=== PATIENT | male | born 1945 | race Caucasian/White ===

== ENCOUNTER 2016-12-23 17:36 | Inpatient (IN) | payer MEDICARE ==
[~2016-12-23] VITALS: Ht 162.6 cm; Wt 57.0 kg
[~2016-12-23 17:36] MED LIST: CIPR250T2 PO; COUM3TAB PO; DICY10 PO; FLUC200T63 PO; KLOR20TA6 PO; LORTA5 PO; MORP30SU PO; NIFE1TAB85 PO; PRAV40TA2 PO; PROB500 PO; PROT40TA PO; TAMS5CAP OR; VANC500 OR; [UNRECOGNIZED DRUG - CODE] OR; vancomycin IV
[2016-12-23 17:43] VITALS: BP 113/68; PULSE 101; RESP 16; TEMP 99.3; O2SAT 95
[2016-12-23] MEDS ORDERED: SODIUM CHLORIDE 0.9% FLUSH 10 ML FLUSH IVF PRN (18:00)
[2016-12-23] MEDS ORDERED: SODIUM CHLORID 0.9% 500 ML INJ 500 ML IV ONE (18:00)
--- NOTE | 2016-12-23 18:07 | PD ---
HPI Chief Complaint: Altered Mental Status Time Seen by Provider: 17:47 Travel History International Travel<30 days: No Contact w/Intl Traveler<30days: No Traveled to known affect area: No History of Present Illness HPI 71-year-old male presents to the emergency department via EMS for "altered mental status". The patient states that "my thinks I am acting weird". The patient states that he took off his shirt and pants earlier which his thought was strange. When I asked him why he did this "he states because I had to go to the bathroom". The patient is alert and oriented to person, place, time. He denies any pain at this time. He does have a sentinel pump implanted for chronic foot pain. He states he takes no other medications. Patient denies any syncope, weakness, head injury. He denies any current headache. He does state that he has had some mild headaches recently, but denies any headache right now. He denies any chest pain. He does state he has had some shortness of breath in the mornings, but does not believe he has any shortness of breath at this time. No abdominal pain. No nausea, vomiting, diarrhea. Patient does state that he has had trouble eating due to having his teeth out recently and has been having trouble sleeping which is new for him. PFSH Past Medical History Cancer: Yes (skin) Cardiovascular Problems: Yes High Cholesterol: Yes Chemotherapy: No Endocrine: No GERD: Yes Gout: Yes Hypertension: Yes Immune Disorder: No Implanted Vascular Access Dvce: Yes Musculoskeletal: No Neurologic: No Psychiatric: No Reproductive: No Respiratory: No Radiation Therapy: No Past Surgical History Abdominal Surgery: Yes (pain pump) Body Medical Devices: stimulator pain pump Other Surgery: Yes (PAIN PUMP 07/25/12) Social History Alcohol Use: No Tobacco Use: No Substance Use: No Allergies-Medications (Allergen,Severity, Reaction): Coded Allergies: *MDRO Multi-Drug Resistant Organism (Verified Allergy, Unknown, 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 Patient is alert and oriented to person, place, time. SKIN: Focused skin assessment warm/dry. HEAD: Normocephalic. Atraumatic EYES: No scleral icterus. No injection or drainage. NECK: Supple, trachea midline. No JVD or lymphadenopathy. CARDIOVASCULAR: Regular rate and rhythm without murmurs, gallops, or rubs. RESPIRATORY: Breath sounds equal bilaterally. No accessory muscle use. Lungs sounds are clear to auscultation. GASTROINTESTINAL: Abdomen soft, non-tender, nondistended. MUSCULOSKELETAL: No cyanosis, or edema. BACK: Nontender without obvious deformity. No CVA tenderness. Data Data Last Documented VS Vital Signs Date Time Temp Pulse Resp B/P (MAP) Pulse Ox O2 Delivery O2 Flow Rate FiO2 12/23/16 19:45 70 18 124/64 (84) 96 Room Air 12/23/16 17:43 99.3 Orders Orders Electrocardiogram (12/23/16 17:55) Complete Blood Count With Diff (12/23/16 17:55) Comprehensive Metabolic Panel (12/23/16 17:55) Magnesium (Mg) (12/23/16 17:55) Ckmb (Isoenzyme) Profile (12/23/16 17:55) Troponin I (12/23/16 17:55) Act Partial Throm Time (Ptt) (12/23/16 17:55) Prothrombin Time / Inr (Pt) (12/23/16 17:55) Urinalysis - C+S If Indicated (12/23/16 17:55) Chest, Single Ap (12/23/16 17:55) Ecg Monitoring (12/23/16 17:55) Iv Access Insert/Monitor (12/23/16 17:55) Oximetry (12/23/16 17:55) Sodium Chloride 0.9% Flush (Ns Flush) (12/23/16 18:00) Sodium Chlorid 0.9% 500 Ml Inj (Ns 500 M (12/23/16 18:00) Cath For Specimen (12/23/16 18:00) Ct Brain W/O Iv Contrast(Rout) (12/23/16 ) Urine Culture (12/23/16 18:19) Blood Culture (12/23/16 20:08) Lactic Acid Sepsis Protocol (12/23/16 20:08) Ceftriaxone Inj (Rocephin Inj) (12/23/16 20:15) Vancomycin Inj (Vancomycin Inj) (12/23/16 20:15) Labs Laboratory Tests Test 12/23/16 18:19 12/23/16 20:20 White Blood Count 20.5 TH/MM3 Red Blood Count 4.08 MIL/MM3 Hemoglobin 12.8 GM/DL Hematocrit 38.7 % Mean Corpuscular Volume 94.7 FL Mean Corpuscular Hemoglobin 31.2 PG Mean Corpuscular Hemoglobin Concent 33.0 % Red Cell Distribution Width 14.7 % Platelet Count 221 TH/MM3 Mean Platelet Volume 8.4 FL Neutrophils (%) (Auto) 82.8 % Lymphocytes (%) (Auto) 7.9 % Monocytes (%) (Auto) 9.0 % Eosinophils (%) (Auto) 0.1 % Basophils (%) (Auto) 0.2 % Neutrophils # (Auto) 16.9 TH/MM3 Lymphocytes # (Auto) 1.6 TH/MM3 Monocytes # (Auto) 1.8 TH/MM3 Eosinophils # (Auto) 0.0 TH/MM3 Basophils # (Auto) 0.0 TH/MM3 CBC Comment DIFF FINAL Differential Comment Prothrombin Time 11.4 SEC Prothromb Time International Ratio 1.0 RATIO Activated Partial Thromboplast Time 25.1 SEC Urine Color YELLOW Urine Turbidity HAZY Urine pH 5.5 Urine Specific [place] 1.021 Urine Protein TRACE mg/dL Urine Glucose (UA) NEG mg/dL Urine Ketones NEG mg/dL Urine Occult Blood NEG Urine Nitrite NEG Urine Bilirubin NEG Urine Urobilinogen LESS THAN 2.0 MG/DL Urine Leukocyte Esterase LARGE Urine RBC 3 /hpf Urine WBC 20 /hpf Urine Squamous Epithelial Cells 1 /hpf Urine Amorphous Sediment RARE Urine Bacteria FEW /hpf Urine Hyaline Casts 12 /lpf Urine Mucus FEW /lpf Microscopic Urinalysis Comment CULTURE INDICATED Blood Urea Nitrogen 22 MG/DL Creatinine 1.19 MG/DL Random Glucose 89 MG/DL Total Protein 6.5 GM/DL Albumin 3.4 GM/DL Calcium Level 8.6 MG/DL Magnesium Level 1.8 MG/DL Alkaline Phosphatase 46 U/L Aspartate Amino Transf (AST/SGOT) 12 U/L Alanine Aminotransferase (ALT/SGPT) 13 U/L Total Bilirubin 0.3 MG/DL Sodium Level 137 MEQ/L Potassium Level 3.3 MEQ/L Chloride Level 102 MEQ/L Carbon Dioxide Level 24.7 MEQ/L Anion Gap 10 MEQ/L Estimat Glomerular Filtration Rate 60 ML/MIN Total Creatine Kinase 49 U/L Troponin I LESS THAN 0.02 NG/ML Lactic Acid Level 0.8 mmol/L MDM Medical Decision Making Medical Screen Exam Complete: Yes Emergency Medical Condition: Yes Medical Record Reviewed: Yes Interpretation(s) chest x-ray - CONCLUSION: No acute abnormality is seen. Differential Diagnosis Electrolyte abnormality versus dehydration versus ACS versus medical clearance Narrative Course 71-year-old male presents to the emergency department for evaluation of altered mental status. He is alert and oriented to person, place, time, but states his thinks he is acting weird. He does complain of not sleeping at night and not eating well. EKG, CBC, CMP, magnesium, CK, troponin, PTT, PT/INR, UA are ordered and pending. Chest x-ray is ordered and pending. Patient is given normal saline 500 and a bolus. EKG shows sinus rhythm, left bundle branch block, heart rate 89. CBC shows leukocytosis 20.5, neutrophilia 82.8. CMP shows slight hypokalemia at 3.3. Magnesium is 1.8. CK is 49. Troponin is less than 0.02. Coags are unremarkable. UA shows large leukocyte esterase, 20 WBC, few bacteria. Chest x -ray shows no acute abnormality. Patient is started on Rocephin 1 g IV, vancomycin 1 g IV for urosepsis. His is at bedside. She states that he has been doing strange things today, taking off his pants, not the bathroom, putting weird things under the bed and keeping light sign. The patient and his both agree to admission. S is paged for admission. INTERMEDIATE FRAME TENDER accepted admission. Sepsis Criteria SIRS Criteria (2 or more): Heart rate over 90, WBC > 04918, < 4000 or > 10% bands Sepsis Criteria (SIRS+source): Infect source susp/known Diagnosis Primary Impression: UTI (urinary tract infection) Qualified Codes: N30.00 - Acute cystitis without hematuria Additional Impression: Sepsis Qualified Codes: A41.9 - Sepsis, unspecified organism Admitting Information Admitting Physician Requests: Admit Odalis Talbot Dec 23, 2016 18:07
[2016-12-23] MEDS ORDERED: FENTANYL PAIN PUMP (18:09)
[2016-12-23] MEDS ORDERED: BACK500T PO (18:09)
[2016-12-23] MEDS ORDERED: NEXI20CA PO (18:09)
[2016-12-23 18:30] VITALS: RESP 18; O2SAT 96
[2016-12-23 19:02] LABS: AUTOMATED NEUTROPHIL # 16.9 TH/MM3 (1.8-7.7); BASOPHIL % 0.2 % (0.0-2.0); EOSINOPHIL % 0.1 % (0.0-4.0); HEMATOCRIT 38.7 % (39.0-51.0); HEMO FLAGS DIFF FINAL; LYMPH % 7.9 % (9.0-44.0); LYMPHOCYTE # 1.6 TH/MM3 (1.0-4.8); MEAN CELL VOLUME 94.7 FL (80.0-100.0); MEAN CORPUSCULAR HEMOGLOBIN 31.2 PG (27.0-34.0); NEUT % 82.8 % (16.0-70.0); PLATELET COUNT 221 TH/MM3 (150-450); RED BLOOD COUNT 4.08 MIL/MM3 (4.50-5.90); RED CELL DISTRIBUTION WIDTH 14.7 % (11.6-17.2); WHITE BLOOD COUNT 20.5 TH/MM3 (4.0-11.0)
[2016-12-23 19:13] LABS: APTT (PATIENT) 25.1 SEC (24.3-30.1); PROTHROMBIN TIME - PATIENT 11.4 SEC (9.8-11.6)
--- NOTE | 2016-12-23 19:17 | RADRPT ---
EXAM DATE/TIME: 12/23/2016 18:12 [facility] COMPARISON: No previous studies available for comparison. INDICATIONS : Weakness and disoriented. MEDICAL HISTORY : None. SURGICAL HISTORY : None. ENCOUNTER: Initial ACUITY: 1 day PAIN SCORE: 0/10 LOCATION: Bilateral upper chest FINDINGS: A single view of the chest demonstrates the lungs to be symmetrically aerated without evidence of mas s, infiltrate or effusion. The cardiomediastinal contours are unremarkable. Stimulator leads are s een over the T11-T12 level. There are old healed leftward fractures. There is widening of the left ac romioclavicular joint. There appears be some chronic remodeling of the distal left clavicle. CONCLUSION: No acute abnormality is seen. Lobito Jaimes MD on December 23, 2016 at 19:14 Board Certified Radiologist. This report was verified electronically.
[2016-12-23 19:24] LABS: BACTERIA, URINE FEW /hpf; BLOOD, URINE NEG (NEG); COMMENT (UR) CULTURE INDICATED; CULTURE IF INDICATED CULTURE INDICATED; GLUCOSE,URINE NEG (NEG); HYALINE CAST, URINE 12 /lpf (RARE); KETONE, URINE NEG (NEG); MUCUS URINE FEW /lpf (OCC); NITRITE,URINE NEG (NEG); PH, URINE 5.5 (5.0-8.5); SQUAMOUS EPITHELIAL CELL URINE 1 /hpf (0-5); URINE COLOR YELLOW (YELLW/STRAW)
[2016-12-23 19:34] LABS: ANION GAP 10 MEQ/L (5-15); AST (GOT) 12 U/L (15-37); BICARBONATE 24.7 MEQ/L (21.0-32.0); BLOOD UREA NITROGEN 22 MG/DL (7-18); CHLORIDE 102 MEQ/L (98-107); GLOMERULAR FILTRATION RATE 60 ML/MIN (>89); MAGNESIUM 1.8 MG/DL (1.5-2.5); POTASSIUM 3.3 MEQ/L (3.5-5.1); SODIUM (NA) 137 MEQ/L (136-145)
[2016-12-23 19:35] LABS: ALT (GPT) 13 U/L (12-78)
[2016-12-23 19:39] LABS: ALKALINE PHOSPHATASE 46 U/L (45-117); TOTAL BILIRUBIN ADULT 0.3 MG/DL (0.2-1.0)
[2016-12-23 19:45] VITALS: BP 124/64; PULSE 70; RESP 18; O2SAT 96
[2016-12-23 19:49] LABS: CREATINE KINASE 49 U/L (39-308)
--- NOTE | 2016-12-23 20:05 | RADRPT ---
EXAM DATE/TIME: 12/23/2016 19:04 [facility] COMPARISON: CT BRAIN W/O CONTRAST, August 07, 2012, 0:38. INDICATIONS : Altered mental status. RADIATION DOSE: 30.91 CTDIvol (mGy) MEDICAL HISTORY : Cardiovascular disease. Hypertension. SURGICAL HISTORY : None. ENCOUNTER: Initial ACUITY: 1 day PAIN SCALE: 0/10 LOCATION: cranial TECHNIQUE: Multiple contiguous axial images were obtained of the head. Using automated exposure control and adj ustment of the mA and/or kV according to patient size, radiation dose was kept as low as reasonably a chievable to obtain optimal diagnostic quality images. DICOM format image data is available electro nically for review and comparison. FINDINGS: CEREBRUM: The ventricles are normal for age. No evidence of midline shift, mass lesion, hemorrhage or acute in farction. No extra-axial fluid collections are seen. POSTERIOR FOSSA: The cerebellum and brainstem are intact. The 4th ventricle is midline. The cerebellopontine angle i s unremarkable. EXTRACRANIAL: The visualized portion of the orbits is intact. SKULL: The calvaria is intact. No evidence of skull fracture. CONCLUSION: No acute disease. Lobito Jaimes MD on December 23, 2016 at 20:03 Board Certified Radiologist. This report was verified electronically.
[2016-12-23] MEDS ORDERED: VANCOMYCIN INJ 1,000 MG in SODIUM CHLOR 0.9% 250 ML INJ 250 ML IV ONE (20:15)
[2016-12-23] MEDS ORDERED: cefTRIAXone INJ 1,000 MG in SODIUM CHLORIDE 0.9% INJ 100 ML IV ONE (20:15)
[2016-12-23] MEDS ORDERED: ONDANSETRON HCL 4 MG/2 ML VIAL IVP PRN (21:15)
[2016-12-23] MEDS ORDERED: LACTULOSE SYRUP 20 GM/30 ML CUP PO PRN (21:15)
[2016-12-23] MEDS ORDERED: BISACODYL 10 MG SUPP RECTAL PRN (21:15)
[2016-12-23] MEDS ORDERED: MAGNESIUM HYDROXIDE SUSP 30 ML CUP PO PRN (21:15)
[2016-12-23] MEDS ORDERED: NALOXONE HCL 0.4 MG/ML AMP IV PUSH PRN (21:15)
[2016-12-23] MEDS ORDERED: SENNOSIDES 8.6 MG TAB PO PRN (21:15)
[2016-12-23] MEDS ORDERED: SODIUM CHLORIDE 0.9% FLUSH 10 ML FLUSH IV FLUSH PRN (21:15)
--- NOTE | 2016-12-23 21:17 | EKG ---
Date Performed: 12/23/2016 Time Performed: 18:23:30 PTAGE: 71 years EKG: Sinus rhythm MARKED LEFT AXIS DEVIATION LEFT BUNDLE BRANCH BLOCK ABNORMAL ECG No significant change from prior el ectrocardiogram. PREVIOUS TRACING : 08/07/2012 00.24 DOCTOR: Mckinley Lopez Interpretating Date/Time 12/23/2016 21:15:44
[2016-12-23 22:08] VITALS: BP 127/78; PULSE 85; RESP 16; O2SAT 98
[2016-12-24] VITALS (8 sets, daily range): BP systolic 119–186; BP diastolic 57–81; PULSE 61–112; RESP 16–18; TEMP 97.6–98.2; O2SAT 95–97
[2016-12-24] MEDS: ACETAMINOPHEN 325 MG TAB PO PRN ×4 (03:57→22:21)
[2016-12-24 05:00] LABS: BASOPHIL % 0.2 % (0.0-2.0); EOSINOPHIL % 0.1 % (0.0-4.0); HEMATOCRIT 36.6 % (39.0-51.0); HEMO FLAGS DIFF FINAL; LYMPH % 7.4 % (9.0-44.0); LYMPHOCYTE # 1.3 TH/MM3 (1.0-4.8); MEAN CELL VOLUME 93.4 FL (80.0-100.0); MEAN CORPUSCULAR HEMOGLOBIN 31.3 PG (27.0-34.0); MEAN CORPUSCULAR HGB CONC 33.5 % (32.0-36.0); MONO % 7.4 % (0.0-8.0); NEUT % 84.9 % (16.0-70.0); PLATELET COUNT 207 TH/MM3 (150-450); RED BLOOD COUNT 3.92 MIL/MM3 (4.50-5.90); WHITE BLOOD COUNT 17.7 TH/MM3 (4.0-11.0)
[2016-12-24 05:22] LABS: BICARBONATE 29.8 MEQ/L (21.0-32.0); POTASSIUM 3.1 MEQ/L (3.5-5.1)
[2016-12-24] MEDS: SODIUM CHLOR 0.9% 1000 ML INJ 1,000 ML IV SCH ×2 (07:53→17:27)
[2016-12-24] MEDS: DOCUSATE SODIUM 50 MG/SENNA 8.6 MG TAB PO SCH ×2 (08:39→22:20)
[2016-12-24] MEDS: SODIUM CHLORIDE 0.9% FLUSH 10 ML FLUSH IV FLUSH SCH ×2 (08:40→21:00)
[2016-12-24] MEDS: PANTOPRAZOLE SOD 20 MG DELAYED RELEASE TAB PO SCH (09:05)
--- NOTE | 2016-12-24 11:12 | MH ---
cc: KELLY JACOBSEN MD DATE OF ADMISSION: 12/23/2016 DATE OF : 1945 ADMITTING PHYSICIAN: Dr. Kelly Jacobsen PRIMARY CARE PHYSICIAN <<0:22>> REASON FOR ADMISSION Altered mental status. HISTORY OF PRESENT ILLNESS: The patient is very pleasant 71-year male with significant past medical history of chronic feet pain for which he is on a pain pump and as per the record, it is Fentanyl pain pump. The patient was brought to the ER by his because of altered mental status. As per records he said my is acting weird. At present the patient has no idea that he is acting weird. As per emergency room record. He took off his shirt and pants yesterday which was a strange in house, was strange per . The patient is alert and oriented any way but he is doing some weird things, like keeping lights on and also keeping few things under his bed. He has no other complaint. At present the patient is seen in his room. He has no complaint. He has no idea that he did these things. He is alert and oriented times four. He thinks that he may have taken some extra aspirin which he sometimes does. There is there is no other associated symptoms. REVIEW OF SYSTEMS As described otherwise negative for 10 systems. MEDICATIONS: The medications reviewed please see electronic medical record. PAST MEDICAL HISTORY: The patient had methicillin-resistant Staphylococcus aureus in the past. SOCIAL HISTORY: The patient does not smoke, drink or do any drugs. He lives with his . PAST MEDICAL HISTORY: 1. The patient has a history of the pain and was given pain stimulator/pain pump with fentanyl. 2. The patient has history of gastroesophageal reflux disease. 3. As per medical record gout as well. 4. He has a history of skin cancer. PHYSICAL EXAMINATION IN GENERAL: The patient is alert and oriented x4 lying on bed without any apparent distress. VITAL SIGNS: The patient is afebrile, pulse is 83-66. The blood pressure 164/79, oximetry 97% on room air. HEAD, EYES, EARS, NOSE, AND THROAT: Head is, normocephalic. Negative conjunctival icterus unremarkable. NECK: Supple. No increased JVD. Negative thyromegaly. Central trachea. CHEST: Clear to auscultation. CARDIOVASCULAR SYSTEM: S1, S2, audible. Unable to hear any ST gallop. GASTROINTESTINAL: Abdomen soft, no organomegaly. Positive bowel sounds. There is a positive pain pump in the right lower quadrant under the skin. EXTREMITIES: No cyanosis or pedal edema appreciated. CENTRAL NERVOUS SYSTEM: Grossly intact. SKIN: Warm and moist. PSYCHIATRIC: Appropriate mood and affect. INVESTIGATIONS: UA shows turbidity hazy, leukocyte esterase large WBC 20, urine bacteria few any Chemistry shows potassium 3.1, random glucose elevated calcium 8.2, WBC count was 70.5 yesterday. Today is 70.7, hemoglobin 12 point, hematocrit 36.6, PT, PTT within normal limits. IMAGING STUDIES Head CT was done which showed no acute disease. CHEST X-RAY Showed no acute abnormality. EKG was done which shows sinus rhythm at rate of 89 beats per minute with LVEDP. ASSESSMENT 1. Altered mental status; metabolic encephalopathy likely secondary to UTI. 2. Urinary tract infection. 3. Chronic pain status post pain pump placement. PLAN 1. Admit to the floor under observation. 2. IV hydration. 3. IV antibiotic. 4. Continue home medication 5. Nexium as indicated. 6. Physical therapy. 7. Leukocytosis improving. 8. We will do labs for tomorrow. 9. Potassium replacement. 10. Discussed with the patient. 11. Discussed with RN. 12. Further recommendations to follow as per the patient progress. Kelly Jacobsen MD JP/wilian /8:27 AM /10:56 AM
[2016-12-24] MEDS ORDERED: GABA300C5 PO (19:17)
[2016-12-24] MEDS ORDERED: cefTRIAXone INJ 1,000 MG in SODIUM CHLORIDE 0.9% INJ 100 ML IV SCH (21:00)
[2016-12-24] MEDS: FAMOTIDINE 20 MG TAB PO SCH (22:20)
[2016-12-24] MEDS: ENALAPRILAT 1.25 MG/ML VIAL IV PUSH PRN (22:21)
[2016-12-25] VITALS (11 sets, daily range): BP systolic 146–189; BP diastolic 64–95; PULSE 49–79; RESP 16–18; TEMP 97.6–98.1; O2SAT 96–98
[2016-12-25] MEDS: SODIUM CHLOR 0.9% 1000 ML INJ 1,000 ML IV SCH ×3 (03:30→23:59)
[2016-12-25] MEDS: ENALAPRILAT 1.25 MG/ML VIAL IV PUSH PRN (04:29)
[2016-12-25] MEDS ORDERED: ACETAMINOPHEN/HYDROcodone 325 MG/5 MG TAB PO PRN (08:15)
--- NOTE | 2016-12-25 08:27 | HHI.PR ---
Subjective Remarks no more confusion as per pt and rn Patient has pain in both feet. As per patient is using gabapentin 300 mg every 4 hour at home prescribed by Dr. Mercado pain management doctor. No other complaints Review of systems a 10 point system otherwise unremarkable Objective Objective Results - Vital Signs Date Time Temp Pulse Resp B/P (MAP) Pulse Ox O2 Delivery O2 Flow Rate FiO2 12/25/16 03:44 98.1 67 18 173/77 (109) 96 12/25/16 00:13 98.0 68 18 157/72 (100) 98 12/24/16 19:40 98.0 87 18 186/81 (116) 96 12/24/16 15:43 61 12/24/16 15:16 97.6 65 18 167/79 (108) 97 12/24/16 12:00 97.9 72 16 155/76 (102) 97 12/24/16 11:57 112 I/O 12/24/16 12/24/16 12/24/16 12/25/16 12/25/16 12/25/16 07:00 15:00 23:00 07:00 15:00 23:00 Intake Total 240 ml 2251 ml Output Total 900 ml 400 ml 875 ml Balance -900 ml -160 ml 1376 ml Intake Oral 240 ml 500 ml IV Total 1751 ml Output Urine Total 900 ml 400 ml 875 ml Result Diagram: 12/24/16 0414 12/24/16 0414 Other Results Date/Time Source Procedure Growth Status 12/23/16 20:20 Blood Peripheral Aerobic Blood Culture - Preliminary NO GROWTH IN 1 DAY Resulted 12/23/16 20:20 Blood Peripheral Anaerobic Blood Culture - Preliminary NO GROWTH IN 1 DAY Resulted 12/23/16 18:19 Urine Clean Catch Urine Culture - Preliminary Pseudomonas Species Resulted Physical Exam Physical Exam IN GENERAL: The patient is alert and oriented x4 lying on bed without any apparent distress. VITAL SIGNS: Reviewed HEAD, EYES, EARS, NOSE, AND THROAT: Head is, normocephalic. Negative conjunctival icterus unremarkable. NECK: Supple. No increased JVD. Negative thyromegaly. Central trachea. CHEST: Clear to auscultation. CARDIOVASCULAR SYSTEM: S1, S2, audible. Unable to hear any ST gallop. GASTROINTESTINAL: Abdomen soft, no organomegaly. Positive bowel sounds. There is a positive pain pump in the right lower quadrant under the skin. EXTREMITIES: No cyanosis or pedal edema appreciated. CENTRAL NERVOUS SYSTEM: Grossly intact. SKIN: Warm and moist. PSYCHIATRIC: Appropriate mood and affect. A/P Assessment and Plan 1. Altered mental status; metabolic encephalopathy likely secondary to UTI. 2. Urinary tract infection. 3. Chronic pain status post pain pump placement. PLAN 1. Seen on the floor. 2. IV hydration. 3. IV antibiotic. Will change to cefepime as patient has a Pseudomonas 4. Continue home medication 5. Nexium as indicated. 6. Physical therapy. 7. Leukocytosis improving. 8. Plan for labs today. 9. Monitor potassium. 10. Restart gabapentin as he was taking. Also when necessary basis [place] for his chronic severe lower extremity pain 11. Discussed with RN. 12. Discussed with the patient. Further recommendations to follow as per the patient progress Patient warrants inpatient admission because of Pseudomonas UTI with change in mental status. To prevent further deterioration including metabolic encephalopathy and sepsis. Likely be a 2-3 days. Mame Jacobsen MD Dec 25, 2016 08:27
[2016-12-25] MEDS: DOCUSATE SODIUM 50 MG/SENNA 8.6 MG TAB PO SCH ×2 (08:47→19:49)
[2016-12-25] MEDS: PANTOPRAZOLE SOD 20 MG DELAYED RELEASE TAB PO SCH (08:47)
[2016-12-25] MEDS: SODIUM CHLORIDE 0.9% FLUSH 10 ML FLUSH IV FLUSH SCH ×2 (08:49→19:50)
[2016-12-25] MEDS: CEFEPIME INJ 1,000 MG in SODIUM CHLORIDE 0.9% INJ 100 ML IV SCH ×2 (08:49→19:51)
[2016-12-25] MEDS: GABAPENTIN 300 MG CAP PO SCH ×3 (11:28→19:49)
[2016-12-25 12:27] LABS: HEMATOCRIT 39.9 % (39.0-51.0); MEAN CELL VOLUME 94.8 FL (80.0-100.0); MEAN CORPUSCULAR HEMOGLOBIN 31.6 PG (27.0-34.0); MEAN CORPUSCULAR HGB CONC 33.3 % (32.0-36.0); PLATELET COUNT 239 TH/MM3 (150-450); RED BLOOD COUNT 4.21 MIL/MM3 (4.50-5.90); RED CELL DISTRIBUTION WIDTH 14.8 % (11.6-17.2); REVIEW FLAG FINAL
[2016-12-25 13:00] LABS: BICARBONATE 28.3 MEQ/L (21.0-32.0); POTASSIUM 3.6 MEQ/L (3.5-5.1)
[2016-12-25] MEDS: FAMOTIDINE 20 MG TAB PO SCH (19:50)
[2016-12-26] MEDS: GABAPENTIN 300 MG CAP PO SCH ×3 (00:01→08:22)
[2016-12-26 00:44] VITALS: BP 172/63; PULSE 65; RESP 18; TEMP 98.1; O2SAT 95
[2016-12-26] MEDS: ENALAPRILAT 1.25 MG/ML VIAL IV PUSH PRN (00:51)
[2016-12-26 03:54] VITALS: BP 176/80; PULSE 58; RESP 18; TEMP 98.5; O2SAT 96
[2016-12-26] MEDS ORDERED: CIPR-9 PO (07:50)
[2016-12-26] MEDS ORDERED: GABA300C5 PO (07:50)
[2016-12-26 07:51] VITALS: BP 188/84; PULSE 59; RESP 18; TEMP 97.9; O2SAT 96
[2016-12-26] MEDS ORDERED: NEXI20CA PO (07:53)
--- NOTE | 2016-12-26 07:54 | HHI.PR ---
Subjective Remarks no more confusion as per pt and rn Patient has pain in both feet. As per patient is using gabapentin 300 mg every 4 hour at home prescribed by Dr. Mercado pain management doctor. No other complaints Review of systems a 10 point system otherwise unremarkable Objective Objective Results - Vital Signs Date Time Temp Pulse Resp B/P (MAP) Pulse Ox O2 Delivery O2 Flow Rate FiO2 12/26/16 03:54 98.5 58 18 176/80 (112) 96 12/26/16 00:44 98.1 65 18 172/63 (99) 95 12/25/16 20:56 49 12/25/16 19:59 98.1 60 18 146/64 (91) 97 12/25/16 15:29 49 12/25/16 15:28 97.6 57 16 149/71 (97) 98 12/25/16 12:37 98.0 63 16 189/95 (126) 96 162/79 (106) 12/25/16 12:26 64 12/25/16 11:32 154/80 (104) 12/25/16 09:05 79 12/25/16 08:32 98.0 62 16 187/89 (121) 97 164/82 (109) I/O 12/25/16 12/25/16 12/25/16 12/26/16 12/26/16 12/26/16 06:59 14:59 22:59 06:59 14:59 22:59 Intake Total 1100 ml 500 ml Output Total 500 ml 900 ml Balance -500 ml 1100 ml -400 ml Intake Oral 500 ml IV Total 1100 ml Output Urine Total 500 ml 900 ml Result Diagram: 12/25/16 1208 12/25/16 1208 Other Results Laboratory Tests Test 12/25/16 12:08 White Blood Count 12.0 Red Blood Count 4.21 Hemoglobin 13.3 Hematocrit 39.9 Mean Corpuscular Volume 94.8 Mean Corpuscular Hemoglobin 31.6 Mean Corpuscular Hemoglobin Concent 33.3 Red Cell Distribution Width 14.8 Platelet Count 239 Mean Platelet Volume 7.4 Blood Urea Nitrogen 9 Creatinine 0.65 Random Glucose 130 Calcium Level 8.9 Sodium Level 140 Potassium Level 3.6 Chloride Level 104 Carbon Dioxide Level 28.3 Anion Gap 8 Estimat Glomerular Filtration Rate 121 Date/Time Source Procedure Growth Status 12/23/16 20:20 Blood Peripheral Aerobic Blood Culture - Preliminary NO GROWTH IN 2 DAYS Resulted 12/23/16 20:20 Blood Peripheral Anaerobic Blood Culture - Preliminary NO GROWTH IN 2 DAYS Resulted 12/23/16 18:19 Urine Clean Catch Urine Culture - Final Pseudomonas Aeruginosa Complete Physical Exam Physical Exam IN GENERAL: The patient is alert and oriented x4 lying on bed without any apparent distress. VITAL SIGNS: Reviewed HEAD, EYES, EARS, NOSE, AND THROAT: Head is, normocephalic. Negative conjunctival icterus unremarkable. NECK: Supple. No increased JVD. Negative thyromegaly. Central trachea. CHEST: Clear to auscultation. CARDIOVASCULAR SYSTEM: S1, S2, audible. Unable to hear any ST gallop. GASTROINTESTINAL: Abdomen soft, no organomegaly. Positive bowel sounds. There is a positive pain pump in the right lower quadrant under the skin. EXTREMITIES: No cyanosis or pedal edema appreciated. CENTRAL NERVOUS SYSTEM: Grossly intact. SKIN: Warm and moist. PSYCHIATRIC: Appropriate mood and affect. A/P Assessment and Plan 1. Altered mental status; metabolic encephalopathy likely secondary to UTI. 2. Urinary tract infection. 3. Chronic pain status post pain pump placement. PLAN 1. Seen on the floor. 2. IV hydration. 3. antibiotic. change alexi abx 4. Continue home medication 5. Nexium as indicated. 6. Physical therapy. 7. Leukocytosis improving. 8. labs reviewed. 9. wnl potassium. 10. Restart gabapentin as he was taking. Also when necessary basis [place] for his chronic severe lower extremity pain 11. Discussed with RN. 12. Discussed with the patient. and plan foe dc home today to follow pcp and pain managment doctor as outpt Mame Jacobsen MD Dec 26, 2016 07:53
[2016-12-26] MEDS: CEFEPIME INJ 1,000 MG in SODIUM CHLORIDE 0.9% INJ 100 ML IV SCH (08:21)
[2016-12-26] MEDS: PANTOPRAZOLE SOD 20 MG DELAYED RELEASE TAB PO SCH (08:22)
[2016-12-26] MEDS: SODIUM CHLORIDE 0.9% FLUSH 10 ML FLUSH IV FLUSH SCH (08:22)
[2016-12-26] MEDS: DOCUSATE SODIUM 50 MG/SENNA 8.6 MG TAB PO SCH (08:22)
[2016-12-26] MEDS ORDERED: LISI10TA3 PO (08:39)
[2016-12-26] MEDS: SODIUM CHLOR 0.9% 1000 ML INJ 1,000 ML IV SCH (09:30)
[2016-12-26 10:43] VITALS: BP 175/78; PULSE 65; RESP 18; TEMP 97.8; O2SAT 98
== END 2016-12-26 12:20 | disposition home or self-care (01) | DRG 689 ==
LOC: NEPE 17:36 → NEDA 21:22 → NEPGCP 22:58 → OBSVTOIN 12-25 08:29
PROVIDERS: ADMIT Specialist; ATTEND Specialist
DX: N39.0 Urinary tract infection, site not specified (principal); G93.41 Metabolic encephalopathy; B96.5 Pseudomonas (aeruginosa) (mallei) (pseudomallei) as the cause of diseases classified elsewhere; I10 Essential (primary) hypertension; G89.29 Other chronic pain; Z96.89 Presence of other specified functional implants; K21.9 Gastro-esophageal reflux disease without esophagitis
CPT/HCPCS: 70450; 71010; 76937; 80048; 80053; 81001; 82550; 83605; 83735; 84484; 85025; 85027; 85610; 85730; 87040; 87077; 87086; 87186; 93005; 96361; 96365; 96366; 96375; G0378; J0692; J0696; J2405; J3370; J7030; J7040; J7050; P9612

== ENCOUNTER 2017-04-10 15:46 | Emergency (ER) | payer MEDICARE ==
[~2017-04-10] VITALS: Ht 162.6 cm; Wt 55.9 kg
[~2017-04-10 15:46] MED LIST changes: +BACK500T PO; +CIPR-9 PO; -CIPR250T2 PO; -COUM3TAB PO; -DICY10 PO; +FENTANYL PAIN PUMP; -FLUC200T63 PO; +GABA300C5 PO; -KLOR20TA6 PO; +LISI10TA3 PO; -LORTA5 PO; -MORP30SU PO; +NEXI20CA PO; -NIFE1TAB85 PO; -PRAV40TA2 PO; -PROB500 PO; -PROT40TA PO; -TAMS5CAP OR; -VANC500 OR; -[UNRECOGNIZED DRUG - CODE] OR; -vancomycin IV
[2017-04-10 15:55] VITALS: BP 157/71; PULSE 63; RESP 20; TEMP 97.7; O2SAT 95
--- NOTE | 2017-04-10 18:40 | PD ---
HPI Chief Complaint: Complaint Time Seen by Provider: 18:31 Travel History International Travel<30 days: No Contact w/Intl Traveler<30days: No Traveled to known affect area: No History of Present Illness HPI This patient says that he self catheterizes chronically and he noticed his urine was cloudy and foul-smelling. He is concerned about having infection. He denies fever. Symptom severity is moderate. No alleviating factors. He has history of Pseudomonas UTI pansensitive PFSH Past Medical History Asthma: No Blood Disorders: No Heart Rhythm Problems: No Cancer: No Cardiovascular Problems: No High Cholesterol: No Chemotherapy: No Chest Pain: No Congestive Heart Failure: No COPD: No Diabetes: No Endocrine: No GERD: Yes Gout: Yes Genitourinary: Yes (RETENTION) Hypertension: Yes Immune Disorder: No Implanted Vascular Access Dvce: Yes Musculoskeletal: Yes (ARTHRITIS) Neurologic: No Psychiatric: No Reproductive: No Respiratory: No Radiation Therapy: No Sleep Apnea: No Thyroid Disease: No Past Surgical History Abdominal Surgery: Yes (pain pump) Body Medical Devices: PAIN PUMP, LOWER RIGHT ABDOMEN Other Surgery: Yes (PAIN PUMP 07/25/12) Social History Alcohol Use: No Tobacco Use: No Substance Use: No Allergies-Medications (Allergen,Severity, Reaction): Coded Allergies: *MDRO Multi-Drug Resistant Organism (Verified Allergy, Unknown, 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 No Known Drug Allergies (Verified Allergy, Unknown, 04/10/17) Reported Meds & Prescriptions Reported Meds & Active Scripts Active Cipro (Ciprofloxacin HCl) 500 Mg Tab 500 Mg PO BID Lisinopril 10 Mg Tab 10 Mg PO DAILY Nexium (Esomeprazole DR) 20 Mg Capdr 20 Mg PO DAILY 30 Days Cipro (Ciprofloxacin HCl) 500 Mg Tab 500 Mg PO BID 10 Days Gabapentin 300 Mg Cap 300 Mg PO Q5H Reported [Fentanyl Pain Pump] Back & Body Extra Strength (Aspirin-Caffeine) 500-32.5 Mg Tab 2 Tab PO Q6HR PRN Review of Systems General / Constitutional: No: Fever Eyes: No: Visual changes HENT: No: Headaches Cardiovascular: No: Chest Pain or Discomfort Respiratory: No: Shortness of Breath Gastrointestinal: No: Abdominal Pain Genitourinary: No: Dysuria Musculoskeletal: No: Pain Skin: No Rash Neurologic: No: Weakness Psychiatric: No: Depression Endocrine: No: Polydipsia Hematologic/Lymphatic: No: Easy Bruising Physical Exam Narrative GENERAL: Well-nourished, well-developed patient in no apparent distress. SKIN: Focused skin assessment reveals no rash and nodules. Skin is Warm and dry. HEAD: Atraumatic. Normocephalic. EYES: Pupils equal and round. No scleral icterus. No injection or drainage. ENT: No nasal bleeding or discharge. Mucous membranes pink and moist. NECK: Trachea midline. No JVD. CARDIOVASCULAR: Regular rate and rhythm. No murmur appreciated. RESPIRATORY: No accessory muscle use. Clear to auscultation. Breath sounds equal bilaterally. GASTROINTESTINAL: Abdomen soft, non-tender, nondistended. Hepatic and splenic margins not palpable. He has a pain pump in the right lower quadrant MUSCULOSKELETAL: No obvious deformities. No clubbing. No cyanosis. No edema. NEUROLOGICAL: Awake and alert. No obvious cranial nerve deficits. Motor grossly within normal limits. Normal speech. PSYCHIATRIC: Appropriate mood and affect; insight and judgment normal. Data Data Last Documented VS Vital Signs Date Time Temp Pulse Resp B/P (MAP) Pulse Ox O2 Delivery O2 Flow Rate FiO2 04/10/17 18:52 18 04/10/17 15:55 97.7 63 157/71 (99) 95 Room Air Orders Orders Urinalysis - C+S If Indicated (04/10/17 16:00) Cath For Specimen (04/10/17 18:37) Urine Culture (04/10/17 20:00) Labs Laboratory Tests Test 04/10/17 20:00 Urine Color YELLOW Urine Turbidity HAZY Urine pH 5.5 Urine Specific [place] 1.013 Urine Protein NEG mg/dL Urine Glucose (UA) TRACE mg/dL Urine Ketones NEG mg/dL Urine Occult Blood TRACE Urine Nitrite NEG Urine Bilirubin NEG Urine Urobilinogen LESS THAN 2.0 MG/DL Urine Leukocyte Esterase LARGE Urine RBC 2 /hpf Urine WBC 30 /hpf Urine Squamous Epithelial Cells 1 /hpf Urine Bacteria MANY /hpf Urine Hyaline Casts 1 /lpf Urine Mucus FEW /lpf Microscopic Urinalysis Comment CULTURE INDICATED MDM Medical Decision Making Medical Screen Exam Complete: Yes Emergency Medical Condition: Yes Medical Record Reviewed: Yes Differential Diagnosis Cystitis, pyelonephritis, UTI Narrative Course I have reviewed the patient's electronic medical record. 3 months ago patient had a Pseudomonas UTI which was pansensitive Catheterized urine will be cultured. I would expect it to be full of pyuria given his history of self caths I wrote him one week of Cipro. He looks clinically well without fever or signs of sepsis Diagnosis Primary Impression: Acute cystitis Qualified Codes: N30.00 - Acute cystitis without hematuria Additional Instructions: The patient was advised to follow up with their physician and return if they worsen. Med/Other Pt SpecificInfo: Prescription(s) given Scripts Ciprofloxacin (Cipro) 500 Mg Tab 500 MG PO BID for Infection, #14 TAB 0 Refills Prov: Christopher Houston MD 04/10/17 Christopher Houston MD Apr 10, 2017 18:40
[2017-04-10 20:28] LABS: BACTERIA, URINE MANY /hpf; BILIRUBIN, URINE NEG (NEG); BLOOD, URINE TRACE (NEG); GLUCOSE,URINE TRACE mg/dL (NEG); HYALINE CAST, URINE 1 /lpf (RARE); KETONE, URINE NEG (NEG); MUCUS URINE FEW /lpf (OCC); NITRITE,URINE NEG (NEG); PH, URINE 5.5 (5.0-8.5); SQUAMOUS EPITHELIAL CELL URINE 1 /hpf (0-5); URINE COLOR YELLOW (YELLW/STRAW); URINE LEUKOCYTE ESTERASE LARGE (NEG)
[2017-04-10] MEDS ORDERED: CIPR-9 PO (20:53)
== END 2017-04-10 21:15 | disposition home or self-care (01) ==
LOC: NEPD 15:46
DX: N30.00 Acute cystitis without hematuria (principal); B96.1 Klebsiella pneumoniae [K. pneumoniae] as the cause of diseases classified elsewhere; I10 Essential (primary) hypertension; K21.9 Gastro-esophageal reflux disease without esophagitis; M19.90 Unspecified osteoarthritis, unspecified site; Z16.39 Resistance to other specified antimicrobial drug
CPT/HCPCS: 81001; 87077; 87086; 87186; 99283